=== PATIENT | female | born 1980 | race Caucasian/White ===

== ENCOUNTER 2016-12-10 07:39 | Emergency (ER) | payer BC, OTHER ==
[~2016-12-10] VITALS: Ht 160 cm; Wt 88.0 kg
[2016-12-10 08:30] LABS: BASOPHIL % 0.2 % (0-2); PLATELET COUNT 391 x10^3mcL (130-400)
[2016-12-10 08:31] LABS: RED CELL DISTRIBUTION WIDTH 16.2 % (11.5-14.5)
[2016-12-10 08:40] LABS: CALCIUM 8.8 mg/dL (8.5-10.1); CHLORIDE SERUM 101 mmol/L (98-107); CREATININE SERUM 0.8 mg/dL (0.6-1.0); GFR1 > 60 mL/min; GLUCOSE SERUM 106 mg/dL (74-106); POTASSIUM SERUM 3.5 mmol/L (3.5-5.1); SODIUM SERUM 137 mmol/L (136-145)
[2016-12-10 08:43] LABS: rbc morphology (normal/abnorm) ABNORMAL (NORMAL)
[2016-12-10 08:44] LABS: ALBUMIN 3.7 g/dL (3.4-5.0); ALKALINE PHOSPHATASE 120 U/L (46-116); ALT/SGPT 16 U/L (14-59); AMYLASE 42 U/L (25-115); AST/SGOT 15 U/L (15-37); BILIRUBIN TOTAL 0.65 mg/dL (0.20-1.00); LIPASE 75 IU/L (73-393); TOTAL PROTEIN, SERUM 7.9 g/dL (6.4-8.2)
[2016-12-10 11:17] VITALS: BP 128/79
== END 2016-12-10 11:17 | disposition home or self-care (01) ==
LOC: ED 07:39
PROVIDERS: Emergency Medicine
DX: K29.00 Acute gastritis without bleeding (principal); R11.2 Nausea with vomiting, unspecified; M06.9 Rheumatoid arthritis, unspecified
CPT/HCPCS: 83880; J1885; J2405; J7030; Q0092

== ENCOUNTER 2017-01-06 08:38 | Emergency (ER) | payer BC, OTHER ==
[~2017-01-06] VITALS: Ht 157.5 cm; Wt 87.2 kg
[2017-01-06 09:41] LABS: BASOPHIL % 0.2 % (0-2); PLATELET COUNT 359 x10^3mcL (130-400)
[2017-01-06 09:43] LABS: RED CELL DISTRIBUTION WIDTH 17.3 % (11.5-14.5)
[2017-01-06 09:56] LABS: CALCIUM 8.9 mg/dL (8.5-10.1); CARBON DIOXIDE 27.5 mmol/L (21-32); CHLORIDE SERUM 99 mmol/L (98-107); CREATININE SERUM 0.6 mg/dL (0.6-1.0); GFR1 > 60 mL/min; GLUCOSE SERUM 88 mg/dL (74-106); POTASSIUM SERUM 3.5 mmol/L (3.5-5.1); SODIUM SERUM 137 mmol/L (136-145)
[2017-01-06 10:00] LABS: ALBUMIN 3.9 g/dL (3.4-5.0); ALKALINE PHOSPHATASE 146 U/L (46-116); ALT/SGPT 24 U/L (14-59); AMYLASE 40 U/L (25-115); AST/SGOT 14 U/L (15-37); BILIRUBIN TOTAL 0.6 mg/dL (0.20-1.00); LIPASE 102 IU/L (73-393); TOTAL PROTEIN, SERUM 8.4 g/dL (6.4-8.2)
[2017-01-06 13:41] VITALS: BP 135/78
== END 2017-01-06 13:41 | disposition home or self-care (01) ==
LOC: ED 08:38
PROVIDERS: Emergency Medicine
DX: R10.9 Unspecified abdominal pain (principal); R19.7 Diarrhea, unspecified; R11.0 Nausea; M06.9 Rheumatoid arthritis, unspecified
CPT/HCPCS: 83880; 87046; 87046-59; J7030

== ENCOUNTER 2017-01-08 17:26 | Inpatient (IN) | payer BC, OTHER ==
[~2017-01-08] VITALS: Ht 160 cm; Wt 85.4 kg
[2017-01-08 19:29] LABS: BASOPHIL % 0 % (0-2); PLATELET COUNT 416 x10^3mcL (130-400); RED CELL DISTRIBUTION WIDTH 17.4 % (11.5-14.5)
[2017-01-08 19:34] LABS: ALBUMIN 4.2 g/dL (3.4-5.0); ALKALINE PHOSPHATASE 128 U/L (46-116); ALT/SGPT 23 U/L (14-59); AMYLASE 41 U/L (25-115); AST/SGOT 15 U/L (15-37); BILIRUBIN TOTAL 0.7 mg/dL (0.20-1.00); CALCIUM 9.5 mg/dL (8.5-10.1); CHLORIDE SERUM 98 mmol/L (98-107); CREATININE SERUM 0.9 mg/dL (0.6-1.0); GFR1 > 60 mL/min; GLUCOSE SERUM 111 mg/dL (74-106); LIPASE 82 IU/L (73-393); SODIUM SERUM 137 mmol/L (136-145)
[2017-01-08 19:38] LABS: TOTAL PROTEIN, SERUM 9.1 g/dL (6.4-8.2)
[2017-01-08 19:39] LABS: POTASSIUM SERUM 2.9 mmol/L (3.5-5.1)
[2017-01-08] MEDS ORDERED: PEPCID40 MG PO (20:38)
[2017-01-08 21:29] VITALS: BP 127/71
[2017-01-08 21:31] VITALS: Ht 160 cm; Wt 85.4 kg
[2017-01-09 00:28] LABS: FREE T4 1.16 ng/dL (0.76-1.46); FREE THYROXINE INDEX 3.7 ug/dL (1.4-4.5)
[2017-01-09 00:43] LABS: microscopic required? YES; urine erythrocyte 1+ (NEGATIVE)
[2017-01-09 01:29] LABS: AMPHETAMINE QUAL UR NONE DETECTED (NEG <=1000)
[2017-01-09 05:45] VITALS: BP 101/59
[2017-01-09 06:18] LABS: BASOPHIL % 0.3 % (0-2); PLATELET COUNT 348 x10^3mcL (130-400)
[2017-01-09 06:24] LABS: CARBON DIOXIDE 23.8 mmol/L (21-32); CHLORIDE SERUM 106 mmol/L (98-107); CREATININE SERUM 0.6 mg/dL (0.6-1.0); GFR1 > 60 mL/min; GLUCOSE SERUM 89 mg/dL (74-106); PHOSPHOROUS 3.3 mg/dL (2.5-4.9); POTASSIUM SERUM 3.5 mmol/L (3.5-5.1); SODIUM SERUM 140 mmol/L (136-145)
[2017-01-09 06:52] LABS: RED CELL DISTRIBUTION WIDTH 17.5 % (11.5-14.5)
[2017-01-09 10:03] VITALS: BP 117/69
[2017-01-09 11:58] LABS: T3 TOTAL 1.38 ng/mL
[2017-01-09 13:12] LABS: RED BLOOD CELLS 4.18 M/mm3 (4.10-5.10)
[2017-01-09 14:02] VITALS: BP 115/62
[2017-01-09 14:08] LABS: IRON 86 ug/dL (50-170); TOTAL IRON BINDING CAPACITY 408 ug/dL (250-450)
[2017-01-09 16:36] VITALS: BP 112/73
[2017-01-09 21:34] VITALS: BP 101/61
[2017-01-10 05:44] VITALS: BP 125/69
[2017-01-10 06:52] LABS: CALCIUM 8.1 mg/dL (8.5-10.1); CARBON DIOXIDE 25.8 mmol/L (21-32); CHLORIDE SERUM 107 mmol/L (98-107); CREATININE SERUM 0.7 mg/dL (0.6-1.0); GFR1 > 60 mL/min; GLUCOSE SERUM 89 mg/dL (74-106); POTASSIUM SERUM 3.4 mmol/L (3.5-5.1); SODIUM SERUM 140 mmol/L (136-145)
[2017-01-10 07:03] LABS: BASOPHIL % 0.4 % (0-2); PLATELET COUNT 274 x10^3mcL (130-400); RED CELL DISTRIBUTION WIDTH 17.3 % (11.5-14.5)
[2017-01-10] MEDS ORDERED: MAC100 PO (09:59)
[2017-01-10] MEDS ORDERED: LAC PO (10:00)
[2017-01-10] MEDS ORDERED: PROTONIX40 MG PO (10:04)
[2017-01-10 10:17] VITALS: BP 115/75
[2017-01-10 11:39] VITALS: BP 115/75
== END 2017-01-10 12:43 | disposition home or self-care (01) | DRG 391 ==
LOC: ED 17:26 → MU 20:05 → DU 20:05 → MU 01-10 08:52
PROVIDERS: Emergency Medicine; Family Medicine; Internal Medicine Gastroenterology; ADMIT Family Medicine
PROC: 0DB68ZX Excision of Stomach, Via Natural or Artificial Opening Endoscopic, Diagnostic (ICD-10-PCS; principal; 2017-01-09 09:30)
DX: K29.70 Gastritis, unspecified, without bleeding (principal); N17.0 Acute kidney failure with tubular necrosis; N39.0 Urinary tract infection, site not specified; E87.6 Hypokalemia; K29.80 Duodenitis without bleeding; D50.9 Iron deficiency anemia, unspecified; F12.10 Cannabis abuse, uncomplicated; K58.9 Irritable bowel syndrome, unspecified; K62.89 Other specified diseases of anus and rectum; E78.5 Hyperlipidemia, unspecified; M06.9 Rheumatoid arthritis, unspecified; Z68.33 Body mass index [BMI] 33.0-33.9, adult; Z83.3 Family history of diabetes mellitus; Z82.49 Family history of ischemic heart disease and other diseases of the circulatory system; Z80.9 Family history of malignant neoplasm, unspecified
CPT/HCPCS: 43235; 83880; 84439; C9113; J0696; J1200; J1610; J1885; J2250; J2310; J2405; J2765; J3010; J3480; J3490; J7030; J7040; Q0092